=== PATIENT | female | born 1990 | race Caucasian/White ===

== ENCOUNTER 2021-10-24 10:01 | Inpatient (IN) | payer BC ==
[~2021-10-24] VITALS: Ht 177.8 cm; Wt 87.1 kg
--- NOTE | 2021-10-25 12:10 | PR ---
[facility] [address], [place] [address] Signed PP Progress Notes Datetime Report Generated by CPN: 10/25/2021 12:10 SUBJECTIVE: [id number] Pain: Within Normal Limits Nausea/Vomiting: Denies Flatus: Yes Bowel Movement: Yes Vital Signs: [id number] Vital Signs: Reviewed; Within Normal Limits Cardiovascular: Normal Respiratory: Normal Abdomen/Uterus: Normal Lochia: Normal Breasts: Normal Extremities: Normal Progress: Normal Exam Comments: Gen: NAD, standing by bassinet Lungs: No dyspnea or retractions CV: RRR, trace edema Abd: SNTND, FFBU IMPRESSION/PLAN/PROCEDURES: [id number] Impression: Normal Progression Plan: Continue Present Management; Discharge Procedures: None Progress Notes: PPD#1 s/p Pt seen and evaluated, doing very well and on track for DC at 24h -hgb 12.2 this morning from 12.4 on admission -pain well-controlled with motrin, only cramping while -ambulating, voiding, tolerating regular diet -requesting DC tonight - well, working on latch -anticipating minipill for contraception Plan: follow-up with telemedicine visit at 2 weeks, in-office appointment with Dr. Mondragon in 6 weeks Signing Physician: Adrian Mendez DO *Electronically Signed* 10/25/21 1210 ADRIAN MENDEZ DO PATIENT NAME: HANK STEVENS PROGRESS NOTE DATE OF : 89 PHYSICIAN: ADRIAN MENDEZ DO RPT #: [id number] REPORT IS CONFIDENTIAL AND NOT TO BE RELEASED WITHOUT AUTHORIZATION [address], [place] [address] Signed Copies: ~ *Electronically Signed* 10/25/21 1210 ADRIAN MENDEZ DO PATIENT NAME: HANK STEVENS PROGRESS NOTE DATE OF : 92 PHYSICIAN: ADRIAN MENDEZ DO RPT #: [id number] REPORT IS CONFIDENTIAL AND NOT TO BE RELEASED WITHOUT AUTHORIZATION
== END 2021-10-25 18:50 | disposition home or self-care (01) | DRG 807 ==
LOC: FBCO 10:01 → FBC 10:30 → FBCO 13:00 → US 13:00 → FBC 10-25 18:50
PROVIDERS: ADMIT Obstetrics & Gynecology; ATTEND Obstetrics & Gynecology
PROC: 10E0XZZ Delivery of Products of Conception, External Approach (ICD-10-PCS; principal; 2021-10-24)
PROC: 0KQM0ZZ Repair Perineum Muscle, Open Approach (ICD-10-PCS; 2021-10-24)
PROC: 0UQMXZZ Repair Vulva, External Approach (ICD-10-PCS; 2021-10-24)
DX: O48.0 Post-term pregnancy (principal); Z37.0 Single live birth; O70.1 Second degree perineal laceration during delivery; Z20.822 Contact with and (suspected) exposure to COVID-19; Z67.40 Type O blood, Rh positive; O71.82 Other specified trauma to perineum and vulva; Z3A.40 40 weeks gestation of pregnancy
CPT/HCPCS: 36415; 85027; 86850; 86900; 86901; 87502; A9270; C9803; J2001; J2590; J2795; J7121; U0003